=== PATIENT | male | born 1955 | race Caucasian/White ===

== ENCOUNTER 2023-01-15 09:00 | Outpatient (RCR) | payer MEDICARE, SELFPAY | END 2023-02-23 16:13 | disposition home or self-care (01) | LOC: HO.PT 09:00 | PROVIDERS: PCP Internal Medicine; Visit Provider Nurse Practitioner Family | DX: M54.2 Cervicalgia (principal); M25.511 Pain in right shoulder | CPT/HCPCS: 97110; 97140; 97161; 97535 ==

== ENCOUNTER 2024-03-07 14:00 | Outpatient (RCR) | payer MEDICARE, SELFPAY | END 2024-03-07 15:26 | disposition home or self-care (01) | LOC: HO.PT 14:00 | PROVIDERS: PCP Internal Medicine; Visit Provider Physician Assistant | DX: M54.2 Cervicalgia (principal) | CPT/HCPCS: 97110; 97140; 97161 ==

== ENCOUNTER 2024-05-01 11:30 | Outpatient (RCR) | payer MEDICARE, SELFPAY | END 2024-05-02 13:50 | disposition home or self-care (01) | LOC: HO.OT 11:30 | PROVIDERS: PCP Internal Medicine; Visit Provider Emergency Medicine | DX: M77.12 Lateral epicondylitis, left elbow (principal) | CPT/HCPCS: 97035; 97110; 97140; 97165 ==